=== PATIENT | male | born 1970 | race Caucasian/White ===

== ENCOUNTER 2017-07-12 10:01 | Day surgery (SDC) | payer OTHER ==
[2017-07-07 15:19] VITALS: BMI 55.4
[~2017-07-12 10:01] MED LIST: DEXAMETHASONE SOD PHOSPHATE 10 MG/ML 1 ML VIAL IV ONE; HEPARIN SODIUM,PORCINE 5,000 UNIT/ML 1 ML VIAL SQ ONE; LACTATED RINGERS 1,000 ML IV SCH; LIDOCAINE 1% 20 ML VIAL (10MG/ML) FOR IV START INTRADERMA PRN; ONDANSETRON 4 MG/2 ML VIAL IVP ONE; SCOPOLAMINE 1.5MG/72HR PATCH TRANSDERM ONE; ceFAZolin 3 GM in SODIUM CHLORIDE 0.9% 100 ML IVPB ONE
[2017-07-12 10:49] LABS: Glucose,Whole Blood 209 mg/dL (75-99)
[2017-07-12] MEDS ORDERED: INSULIN LISPRO (humaLOG) 300 UNIT/3 ML VIAL SQ ONE ×2 (11:22→14:09)
--- NOTE | 2017-07-12 11:42 | P.GSHP ---
History of Present Illness H&P Date: 07/12/17 Chief Complaint: Incarcerated recurrent incisional hernia This a 47-year-old male who presents today for laparoscopic robotic-assisted repair of a recurrent carcinoid incisional hernia. Patient a previous laparoscopic repair of his incisional hernia. He has developed a new mass just below his umbilicus. He presents today for repair. Patient is aware the risk of conversion to the open procedure. Patient is morbidly obese with BMI 55 Past Medical History Past Medical History: Atrial Fibrillation, Diabetes Mellitus, Hyperlipidemia, Hypertension Additional Past Medical History / Comment(s): Hospitalized last week at [place] for high BP and dizziness. States Dr. Bray saw him while there and states he is stable for surgery. History of Any Multi-Drug Resistant Organisms: None Reported Past Surgical History: Hernia Repair, Orthopedic Surgery, Tonsillectomy Additional Past Surgical History / Comment(s): SX ON JAW, SHOULDER, ARM, Past Anesthesia/Blood Transfusion Reactions: No Reported Reaction Smoking Status: Former smoker - Past Family History Mother Family Medical History: No Reported History Medications and Allergies Home Medications Medication Instructions Recorded Confirmed Type Lisinopril [Zestril] 40 mg PO DAILY 08/11/16 07/12/17 History Metoprolol Tartrate [Lopressor] 100 mg PO BID 08/11/16 07/12/17 History Warfarin [Coumadin] 7.5 mg PO DAILY 08/11/16 07/12/17 History metFORMIN HCL [Glucophage] 500 mg PO DAILY 08/11/16 07/12/17 History Atorvastatin [Lipitor] 40 mg PO HS 07/04/17 07/12/17 History amLODIPine [Norvasc] 5 mg PO DAILY 07/04/17 07/12/17 History sitaGLIPtin [Januvia] 25 mg PO DAILY 07/04/17 07/12/17 History Allergies Allergy/AdvReac Type Severity Reaction Status Date / Time No Known Allergies Allergy Verified 07/12/17 10:27 Surgical - Exam Vital Signs Temp Pulse Resp BP Pulse Ox 98.2 F 87 20 132/104 96 07/12/17 10:30 07/12/17 10:30 07/12/17 10:30 07/12/17 10:30 07/12/17 10:30 - General well developed, no distress - Eyes PERRL - ENT normal pinna - Neck no masses - Respiratory normal expansion - Cardiovascular Rhythm: regular - Abdomen Abdomen: soft, non tender Hernia: incisional (10 cm incarcerated incisional hernia located to the left umbilicus.) Results - Labs Abnormal Lab Results - Last 24 Hours (Table) 07/12/17 Range/Units 10:47 POC Glucose (mg/dL) 209 H (75-99) mg/dL Assessment and Plan Plan: Incarcerated recurrent incisional hernia. We'll perform laparoscopic robotic- assisted repair. Patient's aware the risk of conversion to the open procedure
[2017-07-12 11:51] LABS: INR 1.1 (<1.2); Prothrombin Time 10.6 sec (9.0-12.0)
[2017-07-12] MEDS ORDERED: PHENYLEPHRINE-0.9% NACL SYG 1 MG/10 ML SYRINGE ONE (12:09)
[2017-07-12] MEDS ORDERED: MIDAZOLAM 2 MG/2 ML VIAL ONE (12:09)
[2017-07-12] MEDS ORDERED: fentaNYL (PF) 50 MCG/ML 2 ML AMP ONE (12:09)
[2017-07-12] MEDS ORDERED: VECURONIUM 10 MG VIAL IV ONE (12:09)
[2017-07-12] MEDS ORDERED: NEOSTIGMINE 1 MG/ML 10 ML VIAL ONE (12:09)
[2017-07-12] MEDS ORDERED: GLYCOPYRROLATE 0.2 MG/ML 2 ML VIAL ONE (12:09)
[2017-07-12] MEDS ORDERED: SUCCINYLCHOLINE CHLORIDE VIAL 200 MG/10 ML VIAL IV ONE (12:09)
[2017-07-12] MEDS ORDERED: PROPOFOL 10 MG/ML 20 ML VIAL IV ONE (12:09)
[2017-07-12] MEDS ORDERED: LIDOCAINE 1% INJ 10MG/ML (20 ML MDV) ONE (12:09)
[2017-07-12] MEDS ORDERED: BUPIVACAINE (PF) 0.25% 30 ML VIAL SQ ONE (12:40)
--- NOTE | 2017-07-12 13:39 | P.OP ---
Date of Procedure: 07/12/17 Preoperative Diagnosis: Incarcerated incisional hernia Postoperative Diagnosis: Incarcerated incisional hernia Procedure(s) Performed: Laparoscopic robotic-assisted repair of incarcerated incisional hernia Laparoscopic lysis of adhesions Anesthesia: REBECCA Surgeon: Burke Yang Estimated Blood Loss (ml): 5 Pathology: none sent Condition: stable Disposition: PACU Description of Procedure: Patient's placed on the operating table in the supine position. He received general anesthesia. His abdomen was prepped and draped usual sterile fashion. Patient had an incisional hernia located to the right of his umbilicus. The abdomen was entered using the optical 5 mm trocar under direct visitation. The abdomen was then insufflated after adequate insufflation the laparoscope placed back the pleural cavity. Next a 8 mm robotic trochars placed in the left lower quadrant and another 12 mm trocar was placed in the left lateral position the original 5 mm trocar was exchanged for an 8 mm robotic trocar. The patient's placed in the left side up position. The incarcerated hernia was visualized. There appeared be incarcerated omentum within the hernia. Using the cautery the incarcerated omentum and adhesions were lysed. The fascial defect was then seen. The fascial defect was closed with OV lock suture. And then this was buttressed with ventral light ST mesh. This was secured with 2 OV lock suture. The abdomen was inspected there is no bleeding seen. The trochars withdrawn. The needles were withdrawn through the 12 mm trocar site in the fascia of the 12 trocar site was closed with 0 Ethibond suture. Skin was closed interrupted 3-0 Monocryl suture. Dermabond was applied. Patient was sent to recovery in stable condition.
[2017-07-12 14:09] LABS: Glucose,Whole Blood 246 mg/dL (75-99)
[2017-07-12] MEDS: HYDROmorphone 0.5 MG/0.5 ML SYRINGE IVP PRN ×2 (14:19→14:24)
[2017-07-12 14:31] VITALS: TEMP 96.8
[2017-07-12] MEDS ORDERED: LACTATED RINGERS 1,000 ML IV ONE (14:36)
[2017-07-12] MEDS ORDERED: HYDROcodone/APAP 7.5-325MG 1 EACH TAB PO ONE (14:58)
[2017-07-12 15:03] VITALS: RESP 18
[2017-07-12 15:09] LABS: Glucose,Whole Blood 249 mg/dL (75-99)
[2017-07-12 15:44] VITALS: BP 120/78; PULSE 91
== END 2017-07-12 15:57 | disposition home or self-care (01) ==
LOC: OR 10:01
PROVIDERS: ATTEND Surgery
DX: K43.2 Incisional hernia without obstruction or gangrene (principal); E66.01 Morbid (severe) obesity due to excess calories; Z68.43 Body mass index [BMI] 50.0-59.9, adult; E11.9 Type 2 diabetes mellitus without complications; E78.5 Hyperlipidemia, unspecified; I10 Essential (primary) hypertension; I48.91 Unspecified atrial fibrillation; Z87.891 Personal history of nicotine dependence; Z79.899 Other long term (current) drug therapy; Z79.01 Long term (current) use of anticoagulants
CPT/HCPCS: 86900; 86901; 85610; 86850; 49655; C1781; J2250; J0330; J1644; J1100; J2710; J0690; J2405; J2001; J3010; J2370; J2704; J1170

== ENCOUNTER → 2019-04-17 | Outpatient (CLI) | payer MEDICAID ==
[2019-04-17 10:11] LABS: Basophils % (A) 0 %; Eosinophils # (A) 0.3 k/uL (0-0.7); Eosinophils % (A) 3 %; HCT 47.8 % (39.0-53.0); HGB 15.1 gm/dL (13.0-17.5); Lymphocytes # (A) 2.7 k/uL (1.0-4.8); Lymphocytes % (A) 27 %; MCH 27.5 pg (25.0-35.0); MCHC 31.6 g/dL (31.0-37.0); MCV 86.8 fL (80.0-100.0); Mean Platelet Volume 6.7; Monocytes # (A) 0.4 k/uL (0-1.0); Monocytes % (A) 4 %; Neutrophils # (A) 6.4 k/uL (1.3-7.7); Neutrophils % (A) 65 %; Platelet Count 333 k/uL (150-450); RBC 5.51 m/uL (4.30-5.90); RDW 13.3 % (11.5-15.5); WBC 9.9 k/uL (3.8-10.6)
[2019-04-17 16:37] LABS: African American GFR (CKD) 120.7 (60.0-200.0); Albumin/Globulin Ratio 2.11 (1.60-3.17); Anion Gap 10.2 mmol/L (4.00-12.00); BUN/Creat Ratio 22.5 Ratio (12.00-20.00); Calcium 9.4 mg/dL (8.7-10.3); Carbon Dioxide 23.8 mmol/L (21.6-31.8); Globulin 1.9 g/dL (1.6-3.3); LDL Cholesterol,Calculated 116.8 mg/dL (0.0-131.0); Potassium 5.2 mmol/L (3.5-5.5); Total Bilirubin 0.4 mg/dL (0.2-1.2); Total Protein 5.9 g/dL (6.2-8.2); VLDL Calculation 32.2 mg/dL (5.00-40.00)
[2019-04-17 19:27] LABS: Hemoglobin A1C 9.8 % (4.0-6.0)
== END | disposition home or self-care (01) ==
LOC: LABWHC1 09:20
PROVIDERS: ATTEND Physician Assistant
DX: E78.5 Hyperlipidemia, unspecified (principal); E11.65 Type 2 diabetes mellitus with hyperglycemia; I10 Essential (primary) hypertension
CPT/HCPCS: 36415; 80053; 80061; 82043; 82570; 83036; 84402; 84403; 84443; 85025

== ENCOUNTER 2019-06-03 06:57 | Emergency (ER) | payer MEDICAID ==
--- NOTE | 2019-06-03 07:14 | ED ---
General Adult HPI - General Chief complaint: Extremity Injury, Upper Stated complaint: rt elbow injury Time Seen by Provider: 06/03/19 07:02 Source: patient, RN notes reviewed Mode of arrival: ambulatory Limitations: no limitations - History of Present Illness Initial comments: 49-year-old male presents to the emergency department for a chief complaint of right elbow pain. Patient states that the outer bone of his right elbow has been hurting for about 3-4 days. States that it is painful to fully extend his elbow. States that he works for a [employer] and hit his elbow on a high low about 4 days ago which started this pain. Patient states that it sometimes shoots pain up to his right hand. Denies any numbness or tingling in the right hand. Denies any weakness of the right hand. 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 Denies any other injuries. Patient has no other complaints at this time including shortness of breath, chest pain, abdominal pain, nausea or vomiting, headache, or visual changes. - Related Data Home Medications Medication Instructions Recorded Confirmed Atorvastatin [Lipitor] 40 mg PO HS 06/03/19 06/03/19 Lisinopril [Zestril] 20 mg PO DAILY 06/03/19 06/03/19 Omeprazole 20 mg PO DAILY 06/03/19 06/03/19 Potassium Chloride ER [K-Dur 10] 10 meq PO DAILY 06/03/19 06/03/19 amLODIPine [Norvasc] 5 mg PO DAILY 06/03/19 06/03/19 metFORMIN HCL 1,000 mg PO BID 06/03/19 06/03/19 Previous Rx's Medication Instructions Recorded Apixaban [Eliquis] 5 mg PO BID #60 tab 08/29/18 Fluticasone Nasal [place] [Flonase 2 spray EA NOSTRIL DAILY #1 bottle 08/29/18 Nasal [place]] Furosemide [Lasix] 40 mg PO DAILY #30 tab 08/29/18 Metoprolol Tartrate [Lopressor] 50 mg PO BID #60 tab 08/29/18 glipiZIDE [Glucotrol] 5 mg PO AC-TID #90 tab 08/29/18 Allergies Allergy/AdvReac Type Severity Reaction Status Date / Time No Known Allergies Allergy Verified 06/03/19 07:29 Review of Systems ROS Statement: Those systems with pertinent positive or pertinent negative responses have been documented in the HPI. ROS Other: All systems not noted in ROS Statement are negative. Past Medical History Past Medical History: Atrial Fibrillation, Diabetes Mellitus, Hypertension Additional Past Medical History / Comment(s): Hospitalized last week at [place] for high BP and dizziness. States Dr. Bray saw him while there and states he is stable for surgery. History of Any Multi-Drug Resistant Organisms: None Reported Past Surgical History: Hernia Repair, Orthopedic Surgery, Tonsillectomy Additional Past Surgical History / Comment(s): Sx on Shoulder and Jaw. Two hernia Sx Past Anesthesia/Blood Transfusion Reactions: No Reported Reaction Past Psychological History: No Psychological Hx Reported Smoking Status: Former smoker Past Alcohol Use History: Occasional Past Drug Use History: None Reported - Past Family History Mother Family Medical History: COPD, Coronary Artery Disease (CAD), Hypertension, Renal Disease Father Family Medical History: Seizure Disorder Additional Family Medical History / Comment(s): Cerebral Palsy General Exam Limitations: no limitations General appearance: alert, in no apparent distress Head exam: Present: atraumatic, normocephalic, normal inspection Eye exam: Present: normal appearance, PERRL, EOMI. Absent: scleral icterus, conjunctival injection, periorbital swelling ENT exam: Present: normal exam, mucous membranes moist Neck exam: Present: normal inspection, full ROM. Absent: tenderness, meningismus, lymphadenopathy Respiratory exam: Present: normal lung sounds bilaterally. Absent: respiratory distress, wheezes, rales, rhonchi, stridor Cardiovascular Exam: Present: regular rate, normal rhythm, normal heart sounds. Absent: bradycardia, tachycardia, irregular rhythm Extremities exam: Present: full ROM (Patient does have full range of motion of the right elbow but has mild pain with full extension. 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 Absent: joint swelling (no edema, erythema, or increased warmth of the RUE) Course Vital Signs 06/03/19 06/03/19 07:00 07:40 Temperature 97.4 F L 97.6 F Pulse Rate 117 H 60 Respiratory 20 13 Rate Blood Pressure 162/111 122/86 O2 Sat by Pulse 96 95 Oximetry Medical Decision Making - Medical Decision Making 49-year-old male presents to the emergency department for a chief complaint of right elbow pain. This has been ongoing for 3-4 days. Patient did hit his elbow on a high low. Vitals are stable, patient initially tachycardic likely due to pain however this improved throughout his stay and after Tylenol. On exam patient has tenderness to the lateral epicondyle and proximal tendon. Pain with extension of the right wrist. Neurovascular status intact. No erythema or edema or increased warmth suggestive of infection. X-ray of the right elbow shows no acute osseous abnormality but there is mild posterior soft tissue swelling likely contusion. There is also some bony spurring of the lateral upper condyle that could represent chronic extensor tendinopathy or lateral epicondylitis. Patient's physical exam is consistent with lateral epicondylitis. Recommended Motrin and Tylenol for pain. Recommended purchasing a band for this at the pharmacy. Recommended returning he has any worsening symptoms. Disposition Clinical Impression: Lateral epicondylitis of right elbow Disposition: HOME SELF-CARE Condition: Good Instructions (If sedation given, give patient instructions): Tennis Elbow (ED), Contusion in Adults (ED) Additional Instructions: Please take Motrin and Tylenol for pain. You may use brace for tennis elbow from pharmacy. Follow up with primary care in 1-2 days. Return to the emergency department if you have any worsening symptoms. Is patient prescribed a controlled substance at d/c from ED?: No Referrals: Mary Luna DO [Primary Care Provider] - 1-2 days Time of Disposition: 07:51
[2019-06-03] MEDS ORDERED: ACETAMINOPHEN TAB 325 MG TAB PO STA (07:15)
--- NOTE | 2019-06-03 07:33 | XR ---
EXAMINATION TYPE: XR elbow complete RT DATE OF EXAM: 06/03/2019 COMPARISON: NONE HISTORY: 49-year-old male with right elbow pain with numbness TECHNIQUE: 3 views FINDINGS: No elbow joint effusion. Mild posterior soft tissue swelling. Mild bony spurring also seen along the lateral epicondyle. No acute fracture, subluxation, or dislocation. IMPRESSION: 1. No acute osseous abnormality seen. Mild posterior soft tissue swelling. 2. Some bony spurring at the lateral epicondyle could represent chronic extensor tendinopathy or late ral epicondylitis.
[2019-06-03 07:42] VITALS: BP 122/86; PULSE 60; RESP 13; TEMP 97.6
== END 2019-06-03 08:01 | disposition home or self-care (01) ==
LOC: EC 06:57
DX: M77.11 Lateral epicondylitis, right elbow (principal); E11.9 Type 2 diabetes mellitus without complications; I10 Essential (primary) hypertension; Z87.891 Personal history of nicotine dependence; Z79.84 Long term (current) use of oral hypoglycemic drugs; Z79.899 Other long term (current) drug therapy
CPT/HCPCS: 99283